=== PATIENT | female | born 1970 | race American Indian/Alaskan Native ===

== ENCOUNTER 2017-04-12 17:02 | Emergency (ER) | payer BC ==
--- NOTE | 2017-04-12 17:17 | Emergency Department Report ---
Chief Complaint: Skin Rash Stated Complaint: ALLERGIC REACTION Time Seen by Provider: 04/12/17 17:15 - HPI History of Present Illness: PT states she woke up with a rash at 0530. PT states she tried topical medication but the rash is worsening. - ROS Review of Systems: + rash - sob - Exam Physical Exam: PT in no acute resp distress + urticaria MSE screening note: Focused history and physical exam performed. Due to findings the following was ordered: medications ED Disposition for MSE Condition: Stable
[2017-04-12 17:19] VITALS: BP 152/99
--- NOTE | 2017-04-12 20:55 | Emergency Department Report ---
- General Chief complaint: Skin Rash Stated complaint: ALLERGIC REACTION Time Seen by Provider: 04/12/17 17:15 Source: patient, family Mode of arrival: Ambulatory Limitations: No Limitations - History of Present Illness Initial comments: History he reports generalized rash that she noticed at 5 AM this morning. She denies any urinary environment or any similar episode of rash. She's gotten worse throughout the day and it became red. She denies any fever or chills, denies any coughing, wheezing, stridor, swelling or tingling of time or difficulty swallowing. Denies any swelling of her neck. [id number] cold medication taken .the patient was given IV steroids . She is on Norvasc and HCTZ for hypertension. MD complaint: rash -: This morning Tetanus Up to Date: yes Location: generalized Severity scale (0 -10): 0 Quality: other (itching) Consistency: constant Context: other (unknown) Associated symptoms: denies other symptoms Treatments Prior to Arrival: none - Related Data Previous Rx's Medication Instructions Recorded Last Taken Type hydrOXYzine HCL [Atarax] 25 mg PO Q6HR PRN #12 tablet 04/12/17 Unknown Rx methylPREDNISolone [Medrol] 4 mg PO QAM #1 tab.ds.pk 04/12/17 Unknown Rx Allergies Allergy/AdvReac Type Severity Reaction Status Date / Time Penicillins AdvReac Diarrhea Verified 04/12/17 17:20 Abscess Boil HPI - HPI Chief Complaint: Skin Rash Stated Complaint: ALLERGIC REACTION Time Seen by Provider: 04/12/17 17:15 Home Medications: Previous Rx's Medication Instructions Recorded Last Taken Type hydrOXYzine HCL [Atarax] 25 mg PO Q6HR PRN #12 tablet 04/12/17 Unknown Rx methylPREDNISolone [Medrol] 4 mg PO QAM #1 tab.ds.pk 04/12/17 Unknown Rx Allergies/Adverse Reactions: Allergies Allergy/AdvReac Type Severity Reaction Status Date / Time Penicillins AdvReac Diarrhea Verified 04/12/17 17:20 ED Review of Systems ROS: Stated complaint: ALLERGIC REACTION Other details as noted in HPI Comment: All other systems reviewed and negative Constitutional: denies: chills, fever ENT: denies: ear pain, throat pain, congestion Respiratory: no symptoms reported Cardiovascular: denies: chest pain, palpitations, edema, syncope Gastrointestinal: denies: abdominal pain, nausea, vomiting Musculoskeletal: denies: back pain, joint swelling, arthralgia Skin: rash, pruritus Neurological: denies: headache, weakness, numbness, paresthesias, confusion, abnormal gait, vertigo ED Past Medical Hx - Past Medical History Previous Medical History?: Yes Hx Hypertension: Yes - Surgical History Past Surgical History?: Yes Additional Surgical History: hysterectomy - Family History Family history: hypertension - Social History Smoking Status: Never Smoker Substance Use Type: Alcohol - Medications Home Medications: Home Medications Medication Instructions Recorded Confirmed Last Taken Type hydrOXYzine HCL [Atarax] 25 mg PO Q6HR PRN #12 tablet 04/12/17 Unknown Rx methylPREDNISolone [Medrol] 4 mg PO QAM #1 tab.ds.pk 04/12/17 Unknown Rx ED Physical Exam - General Limitations: No Limitations General appearance: alert, in no apparent distress - Head Head exam: Present: atraumatic, normocephalic, normal inspection - Eye Eye exam: Present: normal appearance, PERRL, EOMI. Absent: conjunctival injection, periorbital swelling, periorbital tenderness Pupils: Present: normal accommodation - ENT ENT exam: Present: normal exam, normal orophraynx, mucous membranes moist, TM's normal bilaterally, normal external ear exam - Neck Neck exam: Present: normal inspection, full ROM. Absent: tenderness, lymphadenopathy - Expanded Neck Exam Expanded Neck exam: Absent: tenderness, midline deformity, anterior neck swelling, tracheal deviation - Respiratory Respiratory exam: Present: normal lung sounds bilaterally. Absent: respiratory distress, wheezes, rales, rhonchi, stridor, chest wall tenderness - Cardiovascular Cardiovascular Exam: Present: regular rate, normal rhythm, normal heart sounds - Extremities Exam Extremities exam: Present: normal inspection, full ROM, normal capillary refill. Absent: tenderness, pedal edema, joint swelling, calf tenderness - Back Exam Back exam: Present: normal inspection, full ROM. Absent: tenderness - Neurological Exam Neurological exam: Present: alert, oriented X3, normal gait, reflexes normal. Absent: motor sensory deficit - Psychiatric Psychiatric exam: Present: normal affect, normal mood - Skin Skin exam: Present: warm, dry, rash, erythema - Expanded Skin Exam Expanded Distribution of rash: generalized Description of rash: Present: erythematous, urticarial. Absent: tenderness, discharge, fluctuant, indurated ED Course Vital Signs 04/12/17 04/12/17 17:16 21:05 Temperature 98.7 F Pulse Rate 84 Respiratory 16 Rate Blood Pressure 152/99 O2 Sat by Pulse 100 Oximetry - Reevaluation(s) Reevaluation #1: 04/12/17 21:06 Patient given Solu-Medrol 125 mg IV and triage area and she said her last improvement. Observed in emergency room exacerbation of rash or any respiratory symptoms. 04/12/17 21:07 ED Medical Decision Making - Medical Decision Making ED course: Patient with urticaria rash and was treated in emergency room with Solu-Medrol 125 mg IV. Observed and rash improved. Patient had no respiratory symptoms. I discussed the patient that she will need to follow up with notch grinder. She was understanding of diagnosis and treatment plan and discharged home in stable condition. Patient discharged home with prescription for Medrol Dosepak and Atarax. Critical care attestation.: If time is entered above; I have spent that time in minutes in the direct care of this critically ill patient, excluding procedure time. ED Disposition Clinical Impression: Urticaria, Pruritic dermatitis Disposition: DC-01 TO HOME OR SELFCARE Is pt being admited?: No Does the pt Need Aspirin: No Condition: Stable Instructions: Urticaria (ED), Itchy Skin (ED) Additional Instructions: Please return to the emergency room if rash increases, difficulty breathing, shortness of breath, swelling of tongue or neck and difficulty swallowing. Follow-up with notch grinder as recommended Take Medication as instructed Prescriptions: hydrOXYzine HCL [Atarax] 25 mg PO Q6HR PRN #12 tablet PRN Reason: Itching methylPREDNISolone [Medrol] 4 mg PO QAM #1 tab.ds.pk Referrals: MARITZA GARCIA MD [Staff Physician] - 04/14/17 PRIMARY CAREMD [Primary Care Provider] - 04/14/17 Forms: Accompanied Note, Work/School Release Form(ED)
== END 2017-04-12 21:43 | disposition home or self-care (01) ==
LOC: ED 17:02
DX: L50.9 Urticaria, unspecified (principal); L30.8 Other specified dermatitis; I10 Essential (primary) hypertension; Z88.0 Allergy status to penicillin
CPT/HCPCS: 96372; 99282; J2930